=== PATIENT | male | born 1990 | race Caucasian/White ===

== ENCOUNTER 2018-03-28 16:50 | Emergency (ER) | payer OTHER ==
[2018-03-28] MEDS ORDERED: Dexamethasone IV* 4 MG/ML 1 ML (4 MG) IV SLOW PU ONE (17:11)
[2018-03-28] MEDS ORDERED: Famotidine IV* 10 MG/ML 2 ML (20 mg) IV SLOW PU ONE (17:11)
--- NOTE | 2018-03-28 17:27 | ED ---
Allergic Reaction/Systemic - HPI Summary HPI Summary: This patient is a 27 year old M with tree nut allergy brought in by ambulance to [facility] accompanied by his girlfriend with a chief complaint of throat tightening since 16:00. The patient reports that his symptoms began after he kissed his girlfriend. He notes that he did not know that she had eaten some walnuts. Pt gave himself 1 dose of epi NEWS AGENT. EMS gave 1 dose of epi and Benadryl NEWS AGENT. The patient rates the pain 0/10 in severity. Symptoms aggravated by nothing. Symptoms alleviated by nothing. Patient reports cough and SOB. Patient denies urticaria. Pt reports that he usually gets urticaria on his face and his lips swell up. Patient notes that he was once admitted to the hospital for anaphylaxis and required intubation. Pt has hx asthma. - History of Current Complaint Chief Complaint: EDAllergicReaction Time Seen by Provider: 03/28/18 17:09 Hx Obtained From: Patient Onset/Duration: Started hours ago Timing: Constant, Lasting Hours Severity Currently: None Pain Intensity: 0 Pain Scale Used: 0-10 Numeric Aggravating Factor(s): Nothing Alleviating Factor(s): Nothing Associated Signs And Symptoms: Positive: Throat Tightening - Allergies/Home Medications Allergies/Adverse Reactions: Allergies Allergy/AdvReac Type Severity Reaction Status Date / Time Tree Nuts Allergy Anaphylatic Verified 03/28/18 17:09 Shock PMH/Surg Hx/FS Hx/Imm Hx Endocrine/Hematology History: Denies: Hx Diabetes Opthamlomology History: Denies: Hx Legally Blind EENT History: Denies: Hx Deafness - Surgical History Surgery Procedure, Year, and Place: appendectomy 2018. knee surgery Jan 2018 Infectious Disease History: No Infectious Disease History: Denies: Traveled Outside the [place] in Last 30 Days - Family History Known Family History: Negative: Diabetes - Social History Lives: Dormitory/Roommates Review of Systems Negative: Fever, Chills Negative: Erythema Positive: Sore Throat - throat tightening Negative: Chest Pain Positive: Shortness Of Breath, Cough Negative: Abdominal Pain, Vomiting, Nausea Negative: Myalgia, Edema Negative: Rash Neurological: Negative - negative dizziness All Other Systems Reviewed And Are Negative: Yes Physical Exam - Summary Physical Exam Summary: Constitutional: Well-developed, Well-nourished, Alert. (-) Distressed Skin: Warm, Dry HENT: Normocephalic; Atraumatic Eyes: Conjunctiva normal Neck: Musculoskeletal ROM normal neck. (-) JVD, (-) Stridor, (-) Tracheal deviation Cardio: Rhythm regular, rate normal, Heart sounds normal; Intact distal pulses; The pedal pulses are 2+ and symmetric. Radial pulses are 2+ and symmetric. (-) Murmur Pulmonary/Chest wall: Effort normal. (-) Respiratory distress, (-) Wheezes, (-) Rales Abd: Soft, (-) epigastric tenderness, (-) Distension, (-) Guarding, (-) Rebound Musculoskeletal: (-) Edema Lymph: (-) Cervical adenopathy Neuro: Alert, Oriented x3 Psych: Mood and affect Normal Triage Information Reviewed: Yes Vital Signs On Initial Exam: Initial Vitals Temp Pulse Resp BP Pulse Ox 98 F 65 20 119/76 99 03/28/18 17:08 03/28/18 17:08 03/28/18 17:08 03/28/18 17:08 03/28/18 17:08 Vital Signs Reviewed: Yes Diagnostics - Vital Signs Vital Signs Temp Pulse Resp BP Pulse Ox 03/28/18 17:08 98 F 65 20 119/76 99 - Laboratory Lab Statement: Any lab studies that have been ordered have been reviewed, and results considered in the medical decision making process. Re-Evaluation - Re-Evaluation first re-eval Re-Evaluation Time: 19:37 Change: Improved Comment: Patient says all of his symptoms have resolved Allergic Reaction Course/Dx - Course Course Of Treatment: This patient is a 27 year old M with hx asthma and tree nut allergy brought in by ambulance to [facility] accompanied by his girlfriend with a chief complaint of throat tightening since 16:00. The patient reports that his symptoms began after he kissed his girlfriend. He notes that he did not know that she had eaten some walnuts. Pt gave himself 1 dose of epi NEWS AGENT. EMS gave 1 dose of epi and Benadryl NEWS AGENT. Patient reports cough and SOB. Patient denies urticaria. In the ED course the patient was given Pepcid and decadron. Patient will be discharged home with follow up from PCP in 2-3 days with steroids and an epi pen. Dx anaphylactic reaction. The patient is agreeable with this plan. - Diagnoses Provider Diagnoses: Anaphylactic reaction Discharge - Sign-Out/Discharge Documenting (check all that apply): Patient Departure - discharge home Patient Received Moderate/Deep Sedation with Procedure: No - Discharge Plan Condition: Stable Disposition: HOME Prescriptions: EPINEPHrine [Epipen 2-Jason] 0.3 mg IM ONCE #2 inj predniSONE TAB* [Deltasone 20 MG TAB*] 20 mg PO DAILY #3 tab Patient Education Materials: Food Allergy (ED), Anaphylaxis (ED) Referrals: [facility] [Outside] - 2 Days Additional Instructions: Follow up with your primary care physician in 2-3 days. Return to the emergency department with any new or worsening symptoms. - Attestation Statements Document Initiated by Scribe: Yes Documenting Scribe: Meron Warren Provider For Whom Feiibe is Documenting (Include Credential): Shreyas Celaya MD Scribe Attestation: Meron Escobar, scribed for Shreyas Celaya MD on 03/28/18 at 1943. Status of Scribe Document: Ready
[2018-03-28 20:29] VITALS: BP 117/63
== END 2018-03-28 20:31 | disposition home or self-care (01) ==
LOC: ED 16:50
DX: T78.2XXA Anaphylactic shock, unspecified, initial encounter (principal); J02.9 Acute pharyngitis, unspecified; R06.02 Shortness of breath
CPT/HCPCS: 96374; 96375; 99283; J1100